=== PATIENT | female | born 1985 | race Caucasian/White ===

== ENCOUNTER 2017-05-07 11:13 | Emergency (ER) | payer MEDICAID, OTHER ==
[~2017-05-07] VITALS: Ht 170.2 cm; Wt 63.5 kg
[2017-05-07] MEDS ORDERED: ALBUTEROL FS 2.5 MG/3 ML VIAL.NEB NEB ONE (11:30)
[2017-05-07] MEDS ORDERED: IPRATROPIUM NEB FS 0.5 MG/2.5 ML AMPUL.NEB NEB ONE (11:30)
[2017-05-07] MEDS ORDERED: predniSONE 20 MG TABLET PO ONE (11:30)
--- NOTE | 2017-05-07 11:31 | NUR ---
BB SELF FOR ASTHMA EXACERBATION X 1 DAY, STATES RAN OUT OF INHALER.
[2017-05-07] MEDS ORDERED: predniSONE 20 MG TABLET ONE (11:38)
[2017-05-07] MEDS ORDERED: ALBUTEROL FS 2.5 MG/3 ML VIAL.NEB ONE (11:41)
[2017-05-07 12:23] VITALS: BP 150/76
--- NOTE | 2017-05-07 12:28 | NUR ---
Patient discharged to home in stable condition. Written and verbal after care instructions given. Patient verbalizes understanding of instruction.
== END 2017-05-07 12:29 | disposition home or self-care (01) ==
LOC: ER 11:16
DX: J45.901 Unspecified asthma with (acute) exacerbation (principal); F17.200 Nicotine dependence, unspecified, uncomplicated; I10 Essential (primary) hypertension
CPT/HCPCS: 99283; 99406; A4606; J7512; Z7610